=== PATIENT | male | born 1985 | race African-American/Black ===

== ENCOUNTER 2021-03-26 19:48 | Emergency (ER) | payer MEDICAID, SELFPAY ==
[~2021-03-26] VITALS: Ht 185.4 cm; Wt 127.0 kg
[2021-03-26] MEDS ORDERED: NEOM28.36 TP (20:15)
[2021-03-26 20:30] VITALS: BP_SYST 109
--- NOTE | 2021-03-26 20:30 | NUR ---
Pt BIB BLS, escorted by PD. Pt s/p being tazed to chest by PD r/t resisting arrest. Per PD, pt removed tazer darts himself. Pt uncooperative, therefore unable to assess sites of injury to chest wall.
--- NOTE | 2021-03-26 20:45 | NUR ---
Dr. Lares assessing pt in ambulance bay.
[2021-03-26 21:00] VITALS: BP_SYST 110
--- NOTE | 2021-03-26 21:00 | NUR ---
Patient given written and verbal discharge instructions and verbalizes understanding. ER MD discussed with patient the results and treatment provided. Patient in stable condition. ID arm band removed. No Rx given. Patient educated on pain management and to follow up with PMD. Pain Scale 0/10. Opportunity for questions provided and answered. Medication side effect fact sheet provided. Pt leaves ambulance bay ambulatory with steady gait in custody of PD.
== END 2021-03-26 21:00 ==
LOC: EDBD 19:48 → SED 19:48
DX: S21.132A Puncture wound without foreign body of left front wall of thorax without penetration into thoracic cavity, initial encounter (principal); Z00.01 Encounter for general adult medical examination with abnormal findings
CPT/HCPCS: 99283